=== PATIENT | male | born 1995 | race Two or more races ===

== ENCOUNTER 2019-03-27 11:07 | Emergency (ER) | payer OTHER ==
[~2019-03-27] VITALS: Ht 172.7 cm; Wt 99.3 kg
--- NOTE | 2019-03-27 11:10 | NUR ---
PT BIB [facility] 39 AND NO [employer] WITH A C/O AMS. PT WAS FOUND DOWN ON THE GROUND FOAMING AT THE MOUTH WHILE IN SHELTER. PT DENIES DRUG USE AND APPEARS UPSET. PT ARRIVED W/18G IV IN LAC AND REC'D 250ML NS IN THE FIELD. SR UP X2 AND PADDED
[2019-03-27 12:48] LABS: BASOPHILS # (AUTO) 0.1 /CMM (0.0-0.2); BASOPHILS % (AUTO) 0.8 % (0.0-2.0); EOSINOPHILS % (AUTO) 0.9 % (0.0-6.0); HEMATOCRIT 46 % (39-51); HEMOGLOBIN 15.8 g/dL (13.5-17.5); LYMPHOCYTES % (AUTO) 27.3 % (20.0-44.0); MEAN CORPUSCULAR HGB CONC 35 g/dl (31.0-36.0); MEAN CORPUSCULAR VOLUME 87 fL (80-96); MONOCYTES # (AUTO) 0.6 /CMM (0.1-1.30); MONOCYTES % (AUTO) 8.8 % (2.0-12.0); NEUTROPHILS # (AUTO) 4.5 /CMM (1.8-8.9); NEUTROPHILS % (AUTO) 62.2 % (43.0-81.0); PLATELET COUNT (AUTO) 295 /CMM (150-450); RED BLOOD CELL COUNT(AUTO) 5.24 MIL/uL (4.5-6.0); WHITE BLOOD COUNT (AUTO) 7.3 K/uL (4.3-11.0)
--- NOTE | 2019-03-27 12:56 | NUR ---
URINE SAMPLE SENT TO LAB.
[2019-03-27 13:03] LABS: CALCIUM, SERUM 9.4 mg/dL (8.5-10.1); CREATININE 1.1 mg/dL (0.6-1.3); POTASSIUM 3.9 mmol/L (3.5-5.1)
--- NOTE | 2019-03-27 13:16 | NUR ---
IV removed. Catheter intact and site benign. Pressure and 4x4 applied to site. No bleeding noted. Patient discharged to [facility], IN [facility], in stable condition. Written and verbal after care instructions given. [employer] verbalizes understanding of instruction.
--- NOTE | 2019-03-27 13:39 | NUR ---
PT AMBULATED OUT IN HANDCUFFS WITH A STEADY GAIT. PT REC'D GRIPPER SOCKS.
[2019-03-27 13:42] VITALS: BP 130/78
== END 2019-03-27 13:43 ==
LOC: ER 11:08
DX: G40.909 Epilepsy, unspecified, not intractable, without status epilepticus (principal); Z98.890 Other specified postprocedural states; Z60.2 Problems related to living alone
CPT/HCPCS: 36415; 80048-TC; 80305; 85025-TC